=== PATIENT | male | born 1970 | race Caucasian/White ===

== ENCOUNTER → 2021-02-06 | Outpatient (CLI) | payer BC ==
[~2021-02-06] MED LIST: ALLOPURINOL300 MG PO; ASPIRIN CHEWABL81 MG PO; ATORVASTATIN CA20 MG PO; LISINOPRIL-HCT1 EAC1 PO; METOPROLOL TART50 MG PO; NITROSTAT0.4 MG SL; VITAMIN D21250 MCG PO; ZYRTEC10 M3 PO
== END ==
LOC: KOH-I 12:25
DX: R31.9 Hematuria, unspecified (principal)
CPT/HCPCS: 74018

== ENCOUNTER → 2021-02-07 | Outpatient (CLI) | payer BC | LOC: LBRF 15:52 | DX: R30.0 Dysuria (principal) | CPT/HCPCS: 87086 ==

== ENCOUNTER → 2021-02-20 | Outpatient (CLI) | payer BC | LOC: KOH-I 09:30 | DX: R31.9 Hematuria, unspecified (principal); R10.9 Unspecified abdominal pain; R11.0 Nausea; N13.4 Hydroureter; N20.1 Calculus of ureter | CPT/HCPCS: 74176 ==